=== PATIENT | female | born 1945 | race Caucasian/White ===

== ENCOUNTER 2017-08-28 10:37 | Outpatient (CLI) | END 2017-08-28 10:38 | disposition home or self-care (01) | LOC: FCC-LAB 10:37 | PROVIDERS: ATTEND Family Medicine | DX: E78.2 Mixed hyperlipidemia (principal); I10 Essential (primary) hypertension; I25.10 Atherosclerotic heart disease of native coronary artery without angina pectoris; E11.9 Type 2 diabetes mellitus without complications | CPT/HCPCS: 36415; 80053; 80061; 82043; 83037; 85025 ==

== ENCOUNTER 2017-09-17 14:18 | Outpatient (CLI) | END 2017-09-17 14:19 | disposition home or self-care (01) | LOC: FCC-LAB 14:18 | PROVIDERS: ATTEND Family Medicine | DX: R30.0 Dysuria (principal) | CPT/HCPCS: 87086; 87186 ==

== ENCOUNTER 2018-01-18 09:20 | Outpatient (CLI) | END 2018-01-18 09:21 | disposition home or self-care (01) | LOC: FCC-LAB 09:20 | PROVIDERS: ATTEND Family Medicine | DX: E11.9 Type 2 diabetes mellitus without complications (principal) | CPT/HCPCS: 36415; 80053; 83037 ==

== ENCOUNTER 2018-08-13 09:05 | Outpatient (CLI) | END 2018-08-13 09:06 | disposition home or self-care (01) | LOC: RHC-LAB 09:05 → FCC-LAB 09:06 | PROVIDERS: ATTEND Family Medicine | DX: E11.9 Type 2 diabetes mellitus without complications (principal); E78.2 Mixed hyperlipidemia; I10 Essential (primary) hypertension | CPT/HCPCS: 36415; 80053; 80061; 82043; 85025 ==

== ENCOUNTER 2018-08-20 09:31 | Outpatient (CLI) | END 2018-08-20 09:32 | disposition home or self-care (01) | LOC: RHC-LAB 09:31 → FCC-LAB 09:32 | PROVIDERS: ATTEND Family Medicine | DX: E11.9 Type 2 diabetes mellitus without complications (principal); E55.9 Vitamin D deficiency, unspecified | CPT/HCPCS: 36415; 82306; 83037 ==